=== PATIENT | male | born 2005 | race Caucasian/White ===

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

== ENCOUNTER 2025-01-14 09:12 | Outpatient (CLI) | payer OTHER, SELFPAY | END 2025-01-14 09:13 | disposition home or self-care (01) | PROVIDERS: Visit Provider Family Medicine | DX: M25.512 Pain in left shoulder (principal); M19.012 Primary osteoarthritis, left shoulder; M76.51 Patellar tendinitis, right knee | CPT/HCPCS: 73030; 73562 ==